=== PATIENT | male | born 1970 | race Caucasian/White ===

== ENCOUNTER 2022-10-21 17:08 | Emergency (ER) | payer BC ==
[2022-10-21 17:24] VITALS: BP 149/95; PULSE 81; RESP 16; TEMP 99.4; BMI 32.3
[2022-10-21] MEDS ORDERED: DALBAVANCIN HCL 1,500 MG in DEXTROSE 5%-WATER - 500 ML IVPB ONE (17:47)
[2022-10-21] MEDS ORDERED: DALBAVANCIN HCL 500 MG VIAL (RESTRICTED TO ID ONLY) IVPB ONE (17:56)
[2022-10-21 18:39] LABS: ALBUMIN 3.2 g/dl (3.4-5.0); BILIRUBIN,TOTAL 0.9 mg/dl (0.2-1); CALCIUM 8.8 mg/dl (8.5-10); CREATININE 0.8 mg/dl (0.55-1.3)
[2022-10-21 18:47] LABS: HEMATOCRIT 39.4 % (35.4-49); HEMOGLOBIN 13.9 G/dL (11.7-16.9); MCH 30.5 pg (25.7-33.7); MCHC 35.2 g/dl (32.0-35.9); MEAN CELL VOLUME 86.7 fl (80-96); MEAN PLT VOLUME 7.9 fl (7.5-11.1); PLATELET COUNT 316.1 10^3/uL (134-434); RBC 4.55 10^6/uL (4.00-5.60); RDW 13.5 % (11.9-15.9); WHITE BLOOD COUNT 7.8 10^3/uL (4.0-10.8)
[2022-10-21 19:08] LABS: ERYTHROCYTE SEDIMENTATION RATE 49 mm/hr (0-20)
[2022-10-21 21:01] LABS: PLATELET ESTIMATE ADEQUATE
== END 2022-10-21 20:40 | disposition home or self-care (01) ==
LOC: FER 17:08
PROC: 3E033GC Introduction of Other Therapeutic Substance into Peripheral Vein, Percutaneous Approach (ICD-10-PCS; principal; 2022-10-21)
DX: M86.8X8 Other osteomyelitis, other site (principal)
CPT/HCPCS: 36415; 80053; 85027; 85651; 86140; 99284-25; J0875

== ENCOUNTER 2022-10-29 12:31 | Emergency (ER) | payer BC ==
[2022-10-29 12:38] VITALS: BP 142/80; PULSE 82; RESP 18; TEMP 99.2; BMI 32.8
[2022-10-29] MEDS ORDERED: DALBAVANCIN HCL 1,500 MG in DEXTROSE 5%-WATER - 500 ML IVPB ONE (12:54)
== END 2022-10-29 14:57 | disposition home or self-care (01) ==
LOC: FER 12:31
PROC: 3E033GC Introduction of Other Therapeutic Substance into Peripheral Vein, Percutaneous Approach (ICD-10-PCS; principal; 2022-10-29)
DX: M86.8X8 Other osteomyelitis, other site (principal)
CPT/HCPCS: 96365; 99284-25; J0875

== ENCOUNTER 2023-01-12 19:09 | Emergency (ER) | payer BC ==
[2023-01-12 19:14] VITALS: BP 114/81; PULSE 78; RESP 17; TEMP 97.9; BMI 33.7
== END 2023-01-12 22:35 | disposition left against medical advice (07) ==
LOC: JERFT 19:09
DX: M54.32 Sciatica, left side (principal)
CPT/HCPCS: 99283-25